=== PATIENT | female | born 1985 | race Caucasian/White ===

== ENCOUNTER 2017-03-17 14:59 | Inpatient (IN) | payer OTHER ==
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
--- NOTE | ~2017-03-17 | PN ---
Unit #: [id number] #: [id number] Patient: SUKI LUBIN [id number] [facility] [address] [place] [address] [id number] MR#: [id number] NAME: SUKI LUBIN ROOM: [facility] Age: 31 Sex: F Admission Date: 03/17/2017 : 1985 Attending Physician: Shamika Avelar M.D. Admitting Physician: Shamika Avelar M.D. Primary Care Physician: Primary Care Physician Cathi DOTY NOTES DATE OF SERVICE 03/18/2017 DISCUSSION Ms. Lubin is a 31-year-old white female with mood disorder who was seen today. Chart was reviewed and case was discussed with the staff. She has been anxious, withdrawn, depressed, and rather seclusive to herself. Meanwhile, she has been cooperative with the treatment recommendations and has been taking the medications and tolerating them fairly well with no reported side effects. MENTAL STATUS EXAMINATION Young white female who is casually dressed with fair personal hygiene and appears to be in no acute distress or discomfort. She was awake and alert on interaction with intact orientation. Her mood is anxious with congruent affect. She denies any suicidal or homicidal ideations. Her insight and judgment remain slightly impaired. TREATMENT PLAN 1. We will continue her on her current medications and treatment protocol. We will monitor her response to the medications and make further adjustments as needed. 2. We will continue to follow up. Dictated by... Shamika Avelar M.D. IAA/bzg TD: 03/18/2017 13:38 JOB #: [id number] Unit #: [id number] #: [id number] Patient: SUKI LUBIN PROGRESS NOTES Page 1 of 1 X Shamika Avelar MD PROGRESS NOTE
--- NOTE | ~2017-03-17 | DS ---
Unit #: [id number] #: [id number] Patient: [facility] [id number] [facility] [address] [place] [address] [id number] I MR#: [id number] NAME: SUKI CHRISTINA ROOM: [facility] Age: 31 Sex: F Admission Date: 03/17/2017 : 1985 Discharge Date: 03/22/2017 Attending Physician: Shamika Avelar M.D. DISCHARGE SUMMARY IDENTIFYING DATA Ms. Christina is a 31-year-old white female with history of mood disorder, who is known to us from previous encounter, and was self-referred to the hospital. DISCHARGE DIAGNOSES Psychiatric: Major depressive disorder, recurrent, moderate, without psychotic features; generalized anxiety disorder. Stressors: Moderate psychosocial stressors. HISTORY OF PRESENT ILLNESS Please see initial psychiatric evaluation for details. PAST PSYCHIATRIC HISTORY Please see initial psychiatric evaluation for details. PAST MEDICAL HISTORY Please see initial psychiatric evaluation for details. HOSPITAL COURSE The patient was admitted to the adult psychiatric unit at [facility] [place] and was oriented to the hospital environment. Routine p.r.n. medications were initiated, and she was started back on her home medications. Medications were adjusted, and Celexa and Vistaril were given to help her with the anxiety. She was taking medications regularly and was tolerating them fairly well and was able to show a decent therapeutic response and as such, it was decided that she will be discharged home and will continue treatment on an outpatient basis. DISCHARGE CONDITION Stable. PROGNOSIS Fair. Dictated by... Kelly Stewart/benitez TD: 03/22/2017 14:40 Unit #: [id number] #: [id number] Patient: SKUI CHRISTINA JOB #: [id number] DISCHARGE SUMMARY Page 1 of 1 X Shamika Avelar MD X DISCHARGE SUMMARY
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
--- NOTE | ~2017-03-17 | PN ---
Unit #: [id number] #: [id number] Patient: SUKI LUBIN [id number] [facility] [address] [place] [address] [id number] I MR#: [id number] NAME: SUKI LUBIN ROOM: [facility] Age: 31 Sex: F Admission Date: 03/17/2017 : 1985 Attending Physician: Shamika Avelar M.D. Admitting Physician: Shamika Avelar M.D. Primary Care Physician: Primary Care Physician Cathi BOOKER PROGRESS NOTES DATE 03/21/2017 DISCUSSION Ms. Lubin is a 31-year-old white female who was seen today and chart was reviewed and case was discussed with the staff. She has been anxious, withdrawn, depressed and rather seclusive to herself. Meanwhile, she has been cooperative with treatment recommendations as she has been taking the medications and tolerating them fairly well with no reported side effects. MENTAL STATUS EXAMINATION Young white female who was casually dressed with fair personal hygiene, appears to be in no acute distress or discomfort. She was awake and alert with impaired attention and concentration. Her mood was anxious with congruent affect. She denies any suicidal or homicidal ideations. Her insight and judgement remains slightly impaired. TREATMENT PLAN 1. We will continue her on her current treatment protocol. We will monitor her response and make further adjustments as needed. 2. We will continue to follow up. Dictated by... Kelly Stewart/hakeem TD: 03/23/2017 02:28 JOB #: [id number] Unit #: [id number] #: [id number] Patient: SUKI LUBIN PROGRESS NOTES Page 1 of 1 X Shamika Avelar MD PROGRESS NOTE
--- NOTE | ~2017-03-17 | HP ---
Unit #: [id number] #: [id number] Patient: SUKI CHRISTINA [id number] [place] [address] [id number] I MR#: [id number] NAME: SUKI CHRISTINA ROOM: [facility] Age: 31 Sex: F Admission Date: 03/17/2017 : 1985 Attending Physician: Shamika Avelar M.D. Admitting Physician: Shamika Avelar M.D. Primary Care Physician: Primary Care Physician No HISTORY AND PHYSICAL HISTORY OF PRESENT ILLNESS Suki is 31 year old, admitted to [address] [place] [address] with depression, increased anxiety, and verbalizing wanting to hurt herself. PAST MEDICAL HISTORY 1. Kvng's. 2. Asthma. 3. Obesity. PAST SURGICAL HISTORY 1. Oral. 2. Tubal ligation. 3. Appendectomy. 4. Cholecystectomy. ALLERGIES No known drug allergies. SOCIAL HISTORY He smokes one pack per day, drinks alcohol rarely, denies illicit drug use. FAMILY HISTORY Medically noncontributory. REVIEW OF SYSTEMS CONSTITUTIONAL: No fever or chills. HEENT: Denies any sore throat, ear pain or runny nose. CARDIOVASCULAR: Denies chest pain, irregular heart rhythm or palpitations. CHEST: Denies shortness of breath or cough. No hemoptysis. GASTROINTESTINAL: Denies nausea, vomiting, diarrhea or chronic constipation. ENDOCRINE: Denies history of increased thirst or urination. No recent significant weight loss or gain. GENITOURINARY: Denies dysuria, frequency, or hematuria. SKIN: Denies any rashes. HEMATOLOGIC: Denies history of increased bleeding or bruising. MUSCULOSKELETAL: Denies any hot, swollen joints. No generalized muscle pain. NEUROLOGIC: Denies problems with vision or speech. No frequent, severe headaches. No numbness, tingling or weakness in any extremities. Denies loss of bladder or bowel control. CURRENT MEDICATIONS Unit #: [id number] #: [id number] Patient: SUKI CHRISTINA 1. Celexa 20 mg q.h.s. 2. Vistaril 50 mg t.i.d. 3. Proventil inhaler p.r.n. 4. Lodine 500 mg b.i.d. 5. Bactrim DS 1 p.o. b.i.d. 6. Milk of magnesia p.r.n. 7. Maalox p.r.n. 8. Tylenol p.r.n. 9. Flexeril 10 mg q.8h p.r.n. 10. Levothroid 0.75 mg q.a.m. PHYSICAL EXAMINATION GENERAL: Alert, well-nourished, no apparent distress. VITAL SIGNS: Blood pressure 110/70, heart rate 80, respirations 16, and temperature 98.6. WEIGHT: 157 pounds. HEIGHT: 5 feet 0 inches. SKIN: Warm and dry without rash or lesion. HEENT: Normocephalic. TMs not viewed. Oral and nasal passages clear. Conjunctivae clear. PERRLA. EOMs intact. NECK: Supple without lymphadenopathy or thyromegaly. HEART: Regular rate and rhythm without murmur. LUNGS: Clear. ABDOMEN: Soft, nontender. : Not done. EXTREMITIES: No evidence of cyanosis, clubbing or edema. Moves all without focal deficit. NEUROLOGICAL: Grossly within normal limits. Cranial Nerves: II: Visual kaye are intact. III, IV AND : Extraocular movements are intact. Pupils are equal, round and reactive to light. V: Facial sensation is grossly normal. VII: Facial movements and expression are normal. VIII: Auditory acuity grossly intact. IX, X: Uvula is midline. Phonation is normal. XI: Patient shrugs shoulders and turns head normally. XII: Tongue protrudes in the midline. Sensory and Motor Function: Sensory and motor sensation is grossly normal. Motor: moves all extremities well. Coordination: Gait is normal. Deep Tendon Reflexes: Intact. IMPRESSION Psychiatric admission. RECOMMENDATIONS Psychiatric, per psychiatrist. MEDICAL 1. I see no contraindications to participating in facility's activities. 2. Continue Levothroid, check a TSH. MEDICAL PROGNOSIS Good. MEDICAL CONDITION Stable. Dictated by... Unit #: [id number] #: [id number] Patient: SUKI CHRISTINA Al Parnell.A.-Evangelina. for Kelly Lyons/pastor TD: 03/18/2017 12:14 JOB #: [id number] HISTORY AND PHYSICAL Page 1 of 1 X Kelly Oakes HISTORY AND PHYSICAL
[2017-03-18 09:46] LABS: BASOPHIL# 0.1 X10e3 (0-0.3); BASOPHIL% 1.1 % (0-2.5); EOSINOPHIL# 0.3 X10e3 (0-0.7); EOSINOPHIL% 4.6 % (0.0-7.0); HEMATOCRIT 41.8 % (35.0-45.0); HEMOGLOBIN 14.1 gm/dL (12.0-16.0); LYMPHOCYTE# 2.4 X10e3 (1.0-3.5); LYMPHOCYTE% 35.1 % (17.0-45.0); MEAN CELL VOLUME 91.7 FL (83-96); MEAN CORPUSCULAR HGB CONC 33.8 g/dL (30-36); MEAN PLATELET VOLUME 7.7 FL (6.5-11.5); MONOCYTE# 0.5 X10e3 (0-1.0); MONOCYTE% 6.9 % (3.0-12.0); NEUTROPHIL# 3.5 X10e3 (1.5-7.1); NEUTROPHIL% 52.3 % (40-75); PLATELET COUNT 248 X10e3 (140-420); RED BLOOD COUNT 4.56 X10e (3.90-5.30); RED CELL DISTRIBUTION WIDTH 13.8 % (11.0-15.5); WHITE BLOOD COUNT 6.8 X10e3 (4.0-10.5)
[2017-03-18 09:50] LABS: DIFF IND NO
[2017-03-18 10:05] LABS: ALBUMIN SERUM 3.9 g/dL (3.5-5.0); BILIRUBIN,TOTAL 0.9 mg/dL (0.2-2.0); BUN/CREATININE RATIO 13.75; CALCIUM SERUM 8.9 mg/dL (8.4-10.2); CREATININE SERUM 0.8 mg/dL (0.6-1.4); POTASSIUM 4.5 mmol/L (3.5-5.1); PROTEIN TOTAL SERUM 6.5 g/dL (6.0-8.3)
[2017-03-21 11:06] LABS: URINE APPEARANCE CLOUDY; URINE BLOOD NEG (NEG); URINE COLOR YELLOW; URINE GLUCOSE NORM (NORM); URINE KETONE NEG (NEG); URINE LEUKOCYTE ESTERASE 3+ (NEG); URINE NITRATE NEG (NEG); URINE PROTEIN NEG (NEG); URINE SPECIFIC GRAVITY 1.005 (1.003-1.035); URINE UROBILINOGEN NORM (NORM)
[2017-03-21 11:11] LABS: URINE BILIRUBIN POS (NEG)
[2017-03-21 12:18] LABS: AMPHETAMINE NEG (NEG); BARBITURATES NEG (NEG); BENZODIAZEPINES NEG (NEG); COCAINE NEG (NEG); MARIJUANA NEG (NEG); OPIATES NEG (NEG); TRICYCLIC ANTIDEPRESSANTS POS (NEG); U METHADONE NEG (NEG)
[2017-03-21 13:13] LABS: URBCS1 AUWI 0-2 /[HPF] (0-2)
[2017-03-21 13:14] LABS: URINE AMORPHOUS SEDIMENT AMORP PHOSPHATES; URINE BACTERIA AUWI 1+ (NEGATIVE); URINE MUCUS PRESENT; URINE SQUAMOUS EPITHELIAL CELL MANY /[HPF]
== END 2017-03-22 12:45 | disposition home or self-care (01) | DRG 885 ==
LOC: P2L 14:59
PROVIDERS: Psychiatry & Neurology Psychiatry
DX: F33.1 Major depressive disorder, recurrent, moderate (principal); E06.3 Autoimmune thyroiditis; F41.1 Generalized anxiety disorder; J45.909 Unspecified asthma, uncomplicated; Z98.51 Tubal ligation status; Z90.49 Acquired absence of other specified parts of digestive tract; F17.210 Nicotine dependence, cigarettes, uncomplicated
CPT/HCPCS: 80053; 80307; 81003; 85025